=== PATIENT | male | born 1940 ===

== ENCOUNTER 2017-07-20 10:59 | Outpatient (CLI) | payer OTHER ==
--- NOTE | 2017-07-20 14:33 | Diagnostic Imaging Report ---
Indication: Status post lumbar spine surgery 2 days ago. Patient unable to walk. Technique: MRI examination of the Lumbar spine was performed in a 1.5 Maxine magnet. Sequences obtained include sagittal and axial T1 and T2 fast spin echo, and sagittal STIR. No IV gadolinium was given Comparison: none Findings: The visualized part of the distal spinal cord is normal in appearance. The tip of the conus medullaris is at L1 and is unremarkable. Multilevel laminectomies are noted from L2-L5. Moderate degree of fluid noted within the laminectomy bed, paraspinous muscles and posterior subcutaneous fat in keeping with the very recent surgery done 2 days earlier. There is magnetic susceptibility associated with pedicle screws and fusion rods at L2-3 bilaterally. Screw tracks associated with pedicle screw removal at L4, L5 and S1 noted bilaterally. Susceptibility from prosthetic discs at L3-4, L4-5 and L5-S1 noted with anterior screw fixation apparatus. (Better, more accurate delineation of the extent of resected lamina may be obtained with CT.) T12-L1 and L1-2 are unremarkable. L2-3 shows laminectomy changes as discussed above. The central canal does not appear compressed within normal AP diameter. There is some narrowing of the lateral aspect of the canal and lateral recess due to what is probably a residual facet hypertrophy especially on the right side where there is some deformity from compression of the lateral part of the thecal sac. The neural foramina are difficult to evaluate but there is probable moderate foraminal stenosis on the right side at L2-3. The left neural foramen may be mildly narrowed. There is a percutaneous catheter noted posteriorly within the surgical bed at this level and at L3-4 as well. L3-4 again showing laminectomy with a capacious central canal with normal AP diameter. Hypertrophied facets are present but there is no significant compression of the lateral aspect of the canal at this level due to the facet hypertrophy. Again difficult to evaluate the foramina but there are probably narrowed mildly bilaterally. Just posterior to the L4 vertebra there is a intradural anterior to the 3 mm soft tissue focus (for example image 7-10 of series 7 or for example sagittal T2 sequence image 4. The dark thick there is anterior to this focus. This is possibly an old hematoma or area of intrathecal scarring. There is no associated neural impingement L4-5: This level is fused. There is no central stenosis. There is mild bilateral foraminal stenosis due to facet arthropathy. L5-S1: This level is fused. Bilateral foraminal stenosis demonstrated. No narrowing of the central canal demonstrated. Impression: No evidence of distal spinal cord, conus medullaris or cauda equina compression or spinal stenosis within the central portion of the lumbar canal. Mild right-sided lateral compression of the thecal sac at L2-3 due to facet arthropathy. Probable moderate right foraminal stenosis at this level with limitation due to adjacent hardware. Status post recent laminectomy and instrumented posterior fusion at L2-3 and L3-4. Fusion and discectomy L4-5 and L5-S1. Status post posterior hardware removal. No central stenosis. Facet arthropathy and mild foraminal stenosis. Small, probable old anterior intradural hematoma or intrathecal scarring at L4. This is not associated with any neural compression.
--- NOTE | 2017-07-20 14:45 | Diagnostic Imaging Report ---
Indication: Back pain Technique: MRI examination of the thoracic spine was performed in a 1.5 Maxine magnet. Sequences obtained include sagittal and axial T1 and T2 fast spin echo, and sagittal STIR. No IV gadolinium was given Comparison: none Findings: Just below the C7-T1 disc, left of midline, there is a tiny low signal intensity focus left paracentral aspect of the canal resulting in mild compression of the anterior thecal sac (image 6 of series 5 or 6 and image 2 of series 7). This may be a old, tiny extruded disc given its proximity to the C7-T1 disc. There is no evidence of cord compression or compression of the central canal. No epidural collection or spinal stenosis identified. No intrinsic cord abnormalities are seen. Alignment of the thoracic spine is normal. The intervertebral discs appear relatively normal. A few scattered endplate spurs are noted throughout the thoracic spine in a generalized fashion. There is no visualized foraminal stenosis. Bone marrow signal is essentially normal. Soft tissues are unremarkable. Impression: No evidence of intrinsic cord abnormality or cord compression. Essentially negative thoracic spine MRI. Mild degenerative changes noted. Probable old, tiny extruded disc left paracentral C7-T1 level.
== END 2017-07-20 12:59 | disposition home or self-care (01) ==
LOC: MRI 10:59 → EDBD 11:00 → MRI 12:59
DX: M48.06 Spinal stenosis, lumbar region (principal); M47.896 Other spondylosis, lumbar region
CPT/HCPCS: 72146; 72148